=== PATIENT | female | born 1970 | race Hispanic/Latino ===

== ENCOUNTER 2021-05-30 10:45 | Observation (INO) | payer BC ==
--- NOTE | 2021-05-30 12:40 | Emergency Department Report ---
HPI - General Chief Complaint: GI Bleed Time Seen by Provider: 05/30/21 12:16 - [facility] HPI: Room 6 The patient is a 51-year-old female present with a chief complaint of syncope. The patient states she developed diarrhea yesterday. Patient states she then noticed blood in her stool and states she had multiple episodes throughout the night (approximately 4) passing bright red blood per rectum as well as blood clots. The patient states her stool has been malodorous. The patient states she traveled to the airport with her family in preparation for flight to [place] however prior to checking in the patient states she began to feel nauseous and lightheaded and had a syncopal episode waking up on the floor. The patient states she has had 1 bloody bowel movement since she has been in the emergency department and the second time she thought she had to go but did not pass stool/blood. Patient complains of left knee pain after her syncopal episode ED Past Medical Hx - Past Medical History Previous Medical History?: No Hx Diabetes: No (Gestational diabetes) - Surgical History Past Surgical History?: Yes Hx Cholecystectomy: Yes Additional Surgical History: Left knee surgery, jaw surgery - Family History Family history: no significant - Social History Smoking Status: Never Smoker Substance Use Type: None (Denies illicit drug use), Alcohol (Occasional) ED Review of Systems ROS: Stated complaint: SYNCOPE EPISODE POSSIBLE GI BLEED Other details as noted in HPI Constitutional: no symptoms reported Eyes: denies: eye pain ENT: denies: throat pain Respiratory: no symptoms reported Cardiovascular: denies: chest pain Endocrine: no symptoms reported Gastrointestinal: diarrhea, hematochezia. denies: abdominal pain Genitourinary: denies: dysuria Musculoskeletal: denies: back pain Skin: other (Abrasion) Neurological: denies: headache Physical Exam - Physical Exam Vital Signs: Vital Signs 05/30/21 11:37 Temperature 98.8 F Pulse Rate 100 H Respiratory 16 Rate Blood Pressure 114/64 O2 Sat by Pulse 97 Oximetry Physical Exam: GENERAL: The patient is well-developed well-nourished female lying on stretcher not appearing to be in acute distress. [] HEENT: Normocephalic. Atraumatic. Strabismus present. Patient has moist muco us membranes. NECK: Supple. Trachea midline CHEST/LUNGS: Clear to auscultation. There is no respiratory distress noted. HEART/CARDIOVASCULAR: Regular. There is no tachycardia. There is no gallop rub or murmur. ABDOMEN: Abdomen is soft, nontender. Patient has normal bowel sounds. There is no abdominal distention. SKIN: There is no rash. There is an abrasion to the left knee NEURO: The patient is awake, alert, and oriented. The patient is cooperative. The patient has no focal neurologic deficits. The patient has normal speech. GCS 15 MUSCULOSKELETAL: There is soreness about the left knee. RECTAL: Guaiac positive, maroon stool ED Course Vital Signs 05/30/21 11:37 Temperature 98.8 F Pulse Rate 100 H Respiratory 16 Rate Blood Pressure 114/64 O2 Sat by Pulse 97 Oximetry - Consultations Consultation #1: 05/30/21 15:58 GI paged 05/30/21 16:[address] Spangler. States will place order for GoLYTELY bowel prep in preparation for colonoscopy tomorrow ED Medical Decision Making - Lab Data Result diagrams: 05/30/21 12:57 05/30/21 15:02 - Differential Diagnosis Orthostatic hypotension, hypovolemia, diverticulosis, DKA, new onset diabet Critical care attestation.: If time is entered above; I have spent that time in minutes in the direct care of this critically ill patient, excluding procedure time. ED Disposition Clinical Impression: GI bleed, DKA (diabetic ketoacidosis) Disposition: ADMITTED INPATIENT Is pt being admited?: Yes Does the pt Need Aspirin: No Condition: Fair Instructions: Diabetic Ketoacidosis (ED) Referrals: PRIMARY CARE, [Primary Care Provider] - 3-5 Days Forms: Accompanied Note Time of Disposition: 16:44
[2021-05-30 13:25] LABS: Basophils % (Auto) 0.3 % (0.0-1.8); Eosinophils % (Auto) 0.1 % (0.0-4.3); Hematocrit 37.8 % (30.3-42.9); Hemoglobin 12.5 gm/dl (10.1-14.3); Lymphocytes # (Auto) 1.1 K/mm3 (1.2-5.4); Mean Corpuscular HGB Conc 33 % (30-34); Mean Corpuscular Volume 86 fl (79-97); Monocytes # (Auto) 0.3 K/mm3 (0.0-0.8); Monocytes % (Auto) 3.1 % (0.0-7.3); Platelet Count 312 K/mm3 (140-440); Red Blood Count 4.38 M/mm3 (3.65-5.03); Red Cell Distribution Width 12.6 % (13.2-15.2)
[2021-05-30] MEDS ORDERED: SODIUM CHLORIDE 0.9% 1000 ML 1,000 ML IV ONE ×2 (13:31)
[2021-05-30 13:35] LABS: INR 0.92 (0.87-1.13)
[2021-05-30 14:09] LABS: Alanine Aminotransferase 16 units/L (7-56); Albumin 4.3 g/dL (3.9-5); Blood Urea Nitrogen 12 mg/dL (7-17); Calcium 9.7 mg/dL (8.4-10.2); Hemolysis Index 4
[2021-05-30] MEDS ORDERED: traMADol 50 MG TAB PO ONE (14:10)
[2021-05-30 14:19] LABS: BUN/Creatinine Ratio 24
[2021-05-30] MEDS ORDERED: INSULIN REGULAR, HUMAN 100 UNITS in SODIUM CHLORIDE 0.9% 99 ML IV SCH (15:00)
--- NOTE | 2021-05-30 15:20 | Cat Scan Report ---
CT angio abdomen pelvis INDICATION / CLINICAL INFORMATION: GI bleed, syncope 100 ML OMNI 350. TECHNIQUE: CTA of the chest, abdomen and pelvis. MIPS were performed. All CT scans at this location are performe d using CT dose reduction for ALARA by means of automated exposure control. COMPARISON: None available. FINDINGS: VASCULATURE: Aorta is normal in caliber. No dissection. No aneurysm. The celiac, superior and inferior mesenteric arteries, bilateral renal are patent. CHEST: Lungs: Lungs are clear No pleural effusion. No pneumothorax. Heart: No significant abnormality. Mediastinum: No significant abnormality. ADDITIONAL FINDINGS: None. ABDOMEN and PELVIS: Liver: No significant abnormality. Biliary: Gallbladder is surgically absent. Spleen: No significant abnormality. Pancreas: No significant abnormality. Adrenals: 1.8 cm left adrenal lesion with internal Hounsfield units of approximately 60 on this postc ontrast examination. Kidneys: No significant abnormality. Lymphatics: No lymphadenopathy. Bowel/Peritoneum: There are colonic diverticula. No colonic wall thickening or pericolic stranding. N o extravasation of contrast into the bowel.. Pelvis: No significant abnormality. Osseous Structures: No aggressive osseous lesion. Additional Findings: None IMPRESSION: 1. Extravasation of contrast in the bowel to suggest active GI hemorrhage. No acute abnormality of th e chest, abdomen or pelvis. Signer Name: Mukul Gunter MD Signed: 05/30/2021 3:10 PM Workstation Name: [email or web address]
[2021-05-30 15:37] LABS: Blood Urea Nitrogen 12 mg/dL (7-17); Calcium 8.6 mg/dL (8.4-10.2); Hemolysis Index 16
[2021-05-30 15:43] LABS: BUN/Creatinine Ratio 24
[2021-05-30 15:52] LABS: Bilirubin,Urine NEG (Negative); Blood,Urine LG (Negative); Color,Urine Straw (Yellow); Mucus,Urine FEW /HPF; Urobilinogen,Urine < 2.0 mg/dL (<2.0)
[2021-05-30] MEDS ORDERED: ONDANSETRON 4 MG/2 ML INJ IV PRN (16:09)
[2021-05-30] MEDS ORDERED: ALBUTEROL 2.5 MG/3 ML NEBU IH PRN (16:09)
[2021-05-30] MEDS ORDERED: HYDROmorphone 1 MG/1 ML INJ IV PRN (16:09)
[2021-05-30] MEDS ORDERED: oxyCODONE /ACETAMINOPHEN 5-325MG TAB PO PRN (16:09)
--- NOTE | 2021-05-30 16:09 | History and Physical Report ---
History of Present Illness Chief complaint: I passed out, and I have blood in my stool History of present illness: 50 YO Female with Obesity presents ED for evaluation. Patient reports "I have blood in my stool and I passed out". Patient states that she has experienced multiple episodes of dark red blood per rectum over the past 1 day. Patient also report multiple episodes of loose stool. Patient also acknowledges weakness and lightheadedness which resulted in loss of consciousness. EMS was notified and upon arrival the patient was found to be in distress and subsequent transported to [facility] for further care and evaluation of the aforementioned symptoms. The patient was seen and evaluated in the emergency department all lab and imaging studies reviewed. Patient found to have Hemoccult positive stool as well as clinical findings consistent with GI bleed complicated by syncope. Patient also found to have uncontrolled diabetes mellitus. Patient admitted to medical floor and initiated on GI bleed protocol. Patient denies fever, chills, chest pain, palpitation, adductive cough, skin rash, recent cont act, known exposure to COVID-19, ingestion of food/water from new or different sources. No prior admission for review. No medication listed at time of admission for reconciliation. Advanced care planning conducted in ED. GI team consulted in ED. Past History Past Medical History: other (See HPI) Past Surgical History: cholecystectomy, Other (Left knee surgery, general surgery) Social history: , lives with family Family history: hypertension Medications and Allergies Allergies Allergy/AdvReac Type Severity Reaction Status Date / Time No Known Allergies Allergy Unverified 05/30/21 11:41 Active Meds: Active Medications Insulin Human Regular 100 (units/ Sodium Chloride) 100 mls @ 6 mls/hr IV TITR ZAHRA; Protocol Review of Systems Constitutional: no weight loss, no weight gain, no fever, no chills Ears, nose, mouth and throat: no ear pain, no ear discharge, no decreased hearing, no nasal congestion Breasts: no change in shape, no swelling, no mass Cardiovascular: no chest pain, no palpitations, no edema Respiratory: no cough, no excessive sputum, no hemoptysis, no shortness of breath Gastrointestinal: diarrhea, BRBPR, no abdominal pain, no nausea, no hematemesis, no heartburn Genitourinary Female: no pelvic pain, no flank pain, no dysuria, no urinary frequency, no urgency Rectal: no pain, no incontinence, no bleeding Musculoskeletal: no neck stiffness, no neck pain, no arm numbness/tingling, no low back pain, no leg numbness/tingling Integumentary: no rash, no pruritis, no sores, no jaundice, no boils Neurological: no head injury, no paralysis, no parathesias, no numbness, no seizures Psychiatric: no anxiety, no change in sleep habits, no hypersomnia, no change in appetite, no suicidal ideation Endocrine: no cold intolerance, no polyphagia, no polydipsia, no polyuria, no nocturia Hematologic/Lymphatic: no easy bruising, no easy bleeding Allergic/Immunologic: no urticaria, no allergic rhinitis Exam - Constitutional Vitals: Temp Pulse Resp BP Pulse Ox 98.8 F 100 H 16 114/64 100 05/30/21 11:37 05/30/21 11:37 05/30/21 11:37 05/30/21 11:37 05/30/21 13:33 General appearance: Present: mild distress, obese - EENT Eyes: Present: PERRL ENT: hearing intact, clear oral mucosa - Neck Neck: Present: supple, normal ROM - Respiratory Respiratory effort: normal Respiratory: bilateral: CTA - Cardiovascular Heart Sounds: Present: S1 & S2. Absent: rub, click - Extremities Extremities: pulses symmetrical, No edema Peripheral Pulses: within normal limits - Abdominal General gastrointestinal: Present: soft, non-tender, non-distended, normal bowel sounds Female genitourinary: Present: normal - Integumentary Integumentary: Present: clear, warm, dry - Musculoskeletal Musculoskeletal: gait normal, strength equal bilaterally - Psychiatric Psychiatric: appropriate mood/affect, intact judgment & insight - Neurologic Neurologic: CNII-XII intact, moves all extremities HEART Score - HEART Score Troponin: Troponin T < 0.010 ng/mL (0.00-0.029) 05/30/21 12:57 Results - Labs CBC & Chem 7: 05/30/21 12:57 05/30/21 18:35 Labs: Abnormal lab results 05/30/21 05/30/21 05/30/21 Range/Units 12:57 12:57 12:57 RDW 12.6 L (13.2-15.2) % Lymph % (Auto) 12.0 L (13.4-35.0) % Lymph # (Auto) 1.1 L (1.2-5.4) K/mm3 Seg Neutrophils % 84.5 H (40.0-70.0) % APTT 24.0 L (24.2-36.6) Sec. VBG pH (7.320-7.420) Sodium (137-145) mmol/L Chloride (98-107) mmol/L Carbon Dioxide 21 L (22-30) mmol/L Creatinine 0.5 L (0.6-1.2) mg/dL Glucose 329 H (65-100) mg/dL POC Glucose (70-105) mg/dL 05/30/21 05/30/21 05/30/21 Range/Units 12:57 15:02 15:20 RDW (13.2-15.2) % Lymph % (Auto) (13.4-35.0) % Lymph # (Auto) (1.2-5.4) K/mm3 Seg Neutrophils % (40.0-70.0) % APTT (24.2-36.6) Sec. VBG pH 7.312 L (7.320-7.420) Sodium 131 L D (137-145) mmol/L Chloride 95.1 L (98-107) mmol/L Carbon Dioxide 19 L (22-30) mmol/L Creatinine 0.5 L (0.6-1.2) mg/dL Glucose 281 H (65-100) mg/dL POC Glucose 262 H (70-105) mg/dL Assessment and Plan - Patient Problems (1) GI bleed Current Visit: Yes Status: Acute Plan to address problem: GI bleed protocol: IV PPI therapy, GI team consulted, endoscopy in a.m. as per GI team. No transfusion indicated at this time. Hemoglobin currently stable. (2) Obesity hypoventilation syndrome Current Visit: Yes Status: Acute Plan to address problem: Balanced diet, increase physical activity at discharge. (3) Uncontrolled diabetes mellitus Current Visit: Yes Status: Acute Qualifiers: Glycemic state: with hyperglycemia Plan to address problem: Insulin protocol, Accu-Chek, hypoglycemia protocol (4) DVT prophylaxis Current Visit: Yes Status: Acute Plan to address problem: SCD to bilateral lower extremities while in bed, hold anticoagulation now due to active GI bleed. Patient is ambulatory (5) Advance care planning Current Visit: Yes Status: Acute Plan to address problem: Disease education conducted, care plan discussed, diagnoses discussed, prognosis discussed, patient is full code, patient acknowledges understanding and agreement with care plan, +30 minutes
[2021-05-30] MEDS ORDERED: POLYETHYLENE GLYCOL/ELECT SOLN 4000 ML PO STA (16:38)
[2021-05-30 17:02] LABS: Blood Urea Nitrogen 12 mg/dL (7-17); Calcium 7.6 mg/dL (8.4-10.2); Hemolysis Index 50
[2021-05-30 17:12] LABS: BUN/Creatinine Ratio 30
--- NOTE | 2021-05-30 17:54 | Electrocardiograph Report ---
[facility] Test Date: 2021-05-30 Test Time: 12:54:21 Pat Name: AMIRAH TOVAR Department: Room: [facility] Gender: F Information Systems Operator: BAL : 1970 Requested By: JAMES SANCHES Order Number: [id number] Reading MD: Arjun Hernandez Measurements Intervals [place] Rate: 94 P: 44 [place]: 125 QRS: -7 QRSD: 76 T: 118 QT: 333 QTc: 418 Interpretive Statements Sinus rhythm Ventricular premature complex Nonspecific T abnormalities, lateral leads No previous ECG available for comparison Electronically Signed On 05-30-2021 17:54:04 EST by Arjun Hernandez
[2021-05-30 19:05] LABS: Blood Urea Nitrogen 11 mg/dL (7-17); Calcium 7.8 mg/dL (8.4-10.2); Hemolysis Index 2
[2021-05-30 19:12] LABS: BUN/Creatinine Ratio 28
[2021-05-30] MEDS ORDERED: DEXTROSE 50% IN WATER (25GM) 50 ML SYRINGE IV PRN (20:43)
[2021-05-30 21:43] LABS: Blood Urea Nitrogen 11 mg/dL (7-17); Calcium 8.1 mg/dL (8.4-10.2); Hemolysis Index 16
[2021-05-30 21:50] LABS: BUN/Creatinine Ratio 28
[2021-05-30] MEDS: ACETAMINOPHEN 325 MG TAB PO PRN (22:56)
[2021-05-31 01:01] LABS: Blood Urea Nitrogen 11 mg/dL (7-17); Calcium 8.4 mg/dL (8.4-10.2); Hemolysis Index 16
[2021-05-31 01:37] LABS: BUN/Creatinine Ratio 22
[2021-05-31] MEDS: INSULIN LISPRO 100 UNIT/ML SUB-Q SCH ×4 (02:19→17:47)
[2021-05-31 07:50] LABS: Blood Urea Nitrogen 8 mg/dL (7-17); Calcium 8.3 mg/dL (8.4-10.2); Hemolysis Index 3
[2021-05-31 08:26] LABS: BUN/Creatinine Ratio 20
[2021-05-31] MEDS ORDERED: SODIUM CHLORIDE 0.9% 1000 ML 1,000 ML ONE (10:09)
[2021-05-31] MEDS ORDERED: EPINEPHrine 1 MG/10 ML SYRINGE ONE (10:12)
--- NOTE | 2021-05-31 10:40 | Anesthesia Consultation ---
Anesthesia Consult and Med Hx Date of service: 05/31/21 - Airway Anesthetic Teeth Evaluation: Good ROM Head & Neck: Adequate Mental/Hyoid Distance: Adequate Mallampati Class: Class II Intubation Access Assessment: Good - Pulmonary Exam CTA: Yes - Cardiac Exam Cardiac Exam: RRR - Pre-Operative Health Status ASA Pre-Surgery Classification: ASA2 Proposed Anesthetic Plan: MAC - Pulmonary Hx Asthma: No COPD: No Hx Pneumonia: No - Endocrine Hx End Stage Renal Disease: No Hx Non-Insulin Dependent Diabetes: Yes (Eleveted BG in the 250"s-500"s recently)
--- NOTE | 2021-05-31 10:40 | Anesthesia Day of Surgery ---
Anesthesia Day of Surgery - Day of Surgery Patient Examined: Yes Patient H&P Reviewed: Yes Patient is NPO: Yes
--- NOTE | 2021-05-31 10:51 | Gastroenterology Consultation ---
History of Present Illness - Reason for Consult Consult date: 05/31/21 gi bleed/hematochezia Requesting physician: JAMES SANCHES - History of Present Illness The patient is a 50 yo wf who presents with hematochezia. pt had multiple episodes of brbpr starting 2 nights ago. she was at the airport [place] and had syncopal episode after which she presented to ER. Denies abd pain. had bloody bm's after arrival which cleared during golytely prep. No prior episodes of bleeding. Not on anticoagulation. adopted so unknown family h/o of gi issues. denies prior colonoscopy. Past History Past Medical History: other (See HPI) Past Surgical History: cholecystectomy, Other (Left knee surgery, general surgery) Social history: , lives with family Family history: hypertension Medications and Allergies Allergies Allergy/AdvReac Type Severity Reaction Status Date / Time No Known Allergies Allergy Unverified 05/30/21 11:41 Active Meds: Active Medications Acetaminophen (Acetaminophen 325 Mg Tab) 650 mg PO Q4H PRN PRN Reason: Pain MILD(1-3)/Fever >100.5/MELO Last Admin: 05/30/21 22:56 Dose: 650 mg Documented by: Albuterol (Albuterol 2.5 Mg/3 Ml Nebu) 2.5 mg IH Q4HRT PRN PRN Reason: Shortness Of Breath Dextrose (Dextrose 50% In Water (25gm) 50 Ml Syringe) 50 ml IV Q30MIN PRN; Protocol PRN Reason: Hypoglycemia Hydromorphone HCl (Hydromorphone 1 Mg/1 Ml Inj) 0.5 mg IV Q23H PRN PRN Reason: Pain , Severe (7-10) Insulin Human Lispro (Insulin Lispro 100 Unit/Ml) 0 unit SUB-Q Q6HR ZAHRA; Protocol Last Admin: 05/31/21 06:21 Dose: Not Given Documented by: Ondansetron HCl (Ondansetron 4 Mg/2 Ml Inj) 4 mg IV Q8H PRN PRN Reason: Nausea And Vomiting Oxycodone/Acetaminophen (Oxycodone /Acetaminophen 5-325mg Tab) 1 tab PO Q16H PRN PRN Reason: Pain, Moderate (4-6) Sodium Chloride (Sodium Chloride 0.9% 10 Ml Flush Syringe) 10 ml IV BID AZHRA Last Admin: 05/31/21 09:05 Dose: 10 ml Documented by: Sodium Chloride (Sodium Chloride 0.9% 10 Ml Flush Syringe) 10 ml IV PRN PRN PRN Reason: LINE FLUSH Reviewed/updated patient's home and current medications Review of Systems - Review of Systems All systems: negative (per HPI) Exam - Constitutional Vital Signs: Temp Pulse Resp BP Pulse Ox 98.3 F 88 18 99/51 97 05/31/21 04:48 05/31/21 04:48 05/31/21 04:48 05/31/21 04:48 05/31/21 04:48 General appearance: no acute distress - EENT Eyes: PERRL, EOM intact - Respiratory Respiratory effort: normal Respiratory: bilateral: CTA - Cardiovascular Rhythm: regular Heart Sounds: Present: S1 & S2 - Gastrointestinal General gastrointestinal: Present: soft, non-tender, non-distended - Integumentary Integumentary: Present: clear, warm - Neurologic Neurological: alert and oriented x3 - Psychiatric Psychiatric: appropriate mood/affect - Labs CBC & Chem 7: 05/30/21 12:57 05/31/21 06:31 Lab Results: Laboratory Results - last 24 hr 05/30/21 05/30/21 05/30/21 12:57 12:57 12:57 WBC 8.8 RBC 4.38 Hgb 12.5 Hct 37.8 MCV 86 MCH 29 MCHC 33 RDW 12.6 L Plt Count 312 Lymph % (Auto) 12.0 L [place] % (Auto) 3.1 Eos % (Auto) 0.1 Baso % (Auto) 0.3 Lymph # (Auto) 1.1 L [place] # (Auto) 0.3 Eos # (Auto) 0.0 Baso # (Auto) 0.0 Seg Neutrophils % 84.5 H Seg Neutrophils # 7.4 PT 13.4 INR 0.92 APTT 24.0 L VBG pH Sodium 138 Potassium 4.7 Chloride 100.1 Carbon Dioxide 21 L Anion Gap 22 BUN 12 Creatinine 0.5 L Estimated GFR > 60 BUN/Creatinine Ratio 24 Glucose 329 H POC Glucose Calcium 9.7 Phosphorus Magnesium Total Bilirubin 0.60 AST 14 ALT 16 Alkaline Phosphatase 129 Troponin T Total Protein 7.3 Albumin 4.3 Albumin/Globulin Ratio 1.4 Lipase 30 Urine Color Urine Turbidity Urine pH Ur Specific [place] Urine Protein Urine Glucose (UA) Urine Ketones Urine Blood Urine Nitrite Urine Bilirubin Urine Urobilinogen Ur Leukocyte Esterase Urine WBC (Auto) Urine RBC (Auto) U Epithel Cells (Auto) Urine Mucus Blood Type Antibody Screen 05/30/21 05/30/21 05/30/21 12:57 12:57 12:57 WBC RBC Hgb Hct MCV MCH MCHC RDW Plt Count Lymph % (Auto) [place] % (Auto) Eos % (Auto) Baso % (Auto) Lymph # (Auto) [place] # (Auto) Eos # (Auto) Baso # (Auto) Seg Neutrophils % Seg Neutrophils # PT INR APTT VBG pH 7.312 L Sodium Potassium Chloride Carbon Dioxide Anion Gap BUN Creatinine Estimated GFR BUN/Creatinine Ratio Glucose POC Glucose Calcium Phosphorus Magnesium Total Bilirubin AST ALT Alkaline Phosphatase Troponin T < 0.010 Total Protein Albumin Albumin/Globulin Ratio Lipase Urine Color Urine Turbidity Urine pH Ur Specific [place] Urine Protein Urine Glucose (UA) Urine Ketones Urine Blood Urine Nitrite Urine Bilirubin Urine Urobilinogen Ur Leukocyte Esterase Urine WBC (Auto) Urine RBC (Auto) U Epithel Cells (Auto) Urine Mucus Blood Type B POSITIVE Antibody Screen Negative 05/30/21 05/30/21 05/30/21 15:02 15:02 15:20 WBC RBC Hgb Hct MCV MCH MCHC RDW Plt Count Lymph % (Auto) [place] % (Auto) Eos % (Auto) Baso % (Auto) Lymph # (Auto) [place] # (Auto) Eos # (Auto) Baso # (Auto) Seg Neutrophils % Seg Neutrophils # PT INR APTT VBG pH Sodium 131 L D Potassium 3.9 Chloride 95.1 L Carbon Dioxide 19 L Anion Gap 21 BUN 12 Creatinine 0.5 L Estimated GFR > 60 BUN/Creatinine Ratio 24 Glucose 281 H POC Glucose 262 H Calcium 8.6 Phosphorus 4.10 Magnesium 1.70 Total Bilirubin AST ALT Alkaline Phosphatase Troponin T Total Protein Albumin Albumin/Globulin Ratio Lipase Urine Color Urine Turbidity Urine pH Ur Specific [place] Urine Protein Urine Glucose (UA) Urine Ketones Urine Blood Urine Nitrite Urine Bilirubin Urine Urobilinogen Ur Leukocyte Esterase Urine WBC (Auto) Urine RBC (Auto) U Epithel Cells (Auto) Urine Mucus Blood Type Antibody Screen 05/30/21 05/30/21 05/30/21 16:36 18:35 20:50 WBC RBC Hgb Hct MCV MCH MCHC RDW Plt Count Lymph % (Auto) [place] % (Auto) Eos % (Auto) Baso % (Auto) Lymph # (Auto) [place] # (Auto) Eos # (Auto) Baso # (Auto) Seg Neutrophils % Seg Neutrophils # PT INR APTT VBG pH Sodium 132 L 134 L 134 L Potassium 4.2 4.1 3.9 Chloride 99.6 100.6 100.1 Carbon Dioxide 19 L 21 L 20 L Anion Gap 18 17 18 BUN 12 11 11 Creatinine 0.4 L 0.4 L 0.4 L Estimated GFR > 60 > 60 > 60 BUN/Creatinine Ratio 30 28 28 Glucose 240 H 231 H 234 H POC Glucose Calcium 7.6 L 7.8 L 8.1 L Phosphorus Magnesium Total Bilirubin AST ALT Alkaline Phosphatase Troponin T Total Protein Albumin Albumin/Globulin Ratio Lipase Urine Color Urine Turbidity Urine pH Ur Specific [place] Urine Protein Urine Glucose (UA) Urine Ketones Urine Blood Urine Nitrite Urine Bilirubin Urine Urobilinogen Ur Leukocyte Esterase Urine WBC (Auto) Urine RBC (Auto) U Epithel Cells (Auto) Urine Mucus Blood Type Antibody Screen 05/30/21 05/30/21 05/30/21 23:30 23:35 Unknown WBC RBC Hgb Hct MCV MCH MCHC RDW Plt Count Lymph % (Auto) [place] % (Auto) Eos % (Auto) Baso % (Auto) Lymph # (Auto) [place] # (Auto) Eos # (Auto) Baso # (Auto) Seg Neutrophils % Seg Neutrophils # PT INR APTT VBG pH Sodium 134 L Potassium 3.8 Chloride 99.5 Carbon Dioxide 22 Anion Gap 16 BUN 11 Creatinine 0.5 L Estimated GFR > 60 BUN/Creatinine Ratio 22 Glucose 289 H POC Glucose 284 H Calcium 8.4 Phosphorus Magnesium Total Bilirubin AST ALT Alkaline Phosphatase Troponin T Total Protein Albumin Albumin/Globulin Ratio Lipase Urine Color Straw Urine Turbidity Slightly-cloudy Urine pH 5.0 Ur Specific [place] 1.018 Urine Protein 30 mg/dl Urine Glucose (UA) >=500 Urine Ketones 20 Urine Blood Lg Urine Nitrite Neg Urine Bilirubin Neg Urine Urobilinogen < 2.0 Ur Leukocyte Esterase Neg Urine WBC (Auto) 2.0 Urine RBC (Auto) 1.0 U Epithel Cells (Auto) 4.0 Urine Mucus Few Blood Type Antibody Screen 05/31/21 05/31/21 05/31/21 05:46 06:31 10:14 WBC RBC Hgb Hct MCV MCH MCHC RDW Plt Count Lymph % (Auto) [place] % (Auto) Eos % (Auto) Baso % (Auto) Lymph # (Auto) [place] # (Auto) Eos # (Auto) Baso # (Auto) Seg Neutrophils % Seg Neutrophils # PT INR APTT VBG pH Sodium 136 L Potassium 3.6 Chloride 101.8 Carbon Dioxide 23 Anion Gap 15 BUN 8 Creatinine 0.4 L Estimated GFR > 60 BUN/Creatinine Ratio 20 Glucose 250 H POC Glucose 237 H 238 H Calcium 8.3 L Phosphorus Magnesium Total Bilirubin AST ALT Alkaline Phosphatase Troponin T Total Protein Albumin Albumin/Globulin Ratio Lipase Urine Color Urine Turbidity Urine pH Ur Specific [place] Urine Protein Urine Glucose (UA) Urine Ketones Urine Blood Urine Nitrite Urine Bilirubin Urine Urobilinogen Ur Leukocyte Esterase Urine WBC (Auto) Urine RBC (Auto) U Epithel Cells (Auto) Urine Mucus Blood Type Antibody Screen - Imaging CT Scan: report reviewed Assessment and Plan 1. Hematochezia/GI bleed - CTA negative for active bleeding, did show tics. HD stable. will plan for colonoscopy today.
[2021-05-31] MEDS ORDERED: propofoL 200 MG/20 ML VIAL IV ONE (10:54)
[2021-05-31] MEDS ORDERED: MIDAZOLAM 2 MG/2 ML INJ ONE (10:54)
--- NOTE | 2021-05-31 11:09 | Operative Report ---
Operative Report Operative Report: Colonoscopy Procedure Note Date of procedure: 05/31/2021 Endoscopist: Denzel Spangler Pre-op diagnosis/indication: Hematochezia, GI bleed Post-op diagnosis: Diverticulosis, Internal hemorrhoids MEDICATIONS: MAC COMPLICATIONS: No immediate complications ESTIMATED BLOOD LOSS: None DESCRIPTION OF PROCEDURE: After consent was obtained, the patient was placed in the left lateral decubitis position. The olympus colonoscope was inserted into the rectum and advanced to the cecum without difficulty. The patient tolerated the procedure well. The views of the mucosa were fair/adequate for diagnostic purposes (unable to rule out small polyps or flat lesions). The patients vital signs were monitored continuously throughout the procedure. FINDINGS: There were multiple scattered small diverticula throughout the colon. Internal hemorrhoids were visualized on retro-flexion view. No blood was seen during the procedure. IMPRESSION: 1. Diverticulosis - suspected source of bleeding. 2. Internal hemorrhoids. No blood seen during the procedure. RECOMMENDATIONS: -okay to resume diet -high fiber diet daily -follow-up repeat labs, and if stable, can be discharged from GI stand point.
[2021-05-31] MEDS: ACETAMINOPHEN 325 MG TAB PO PRN (12:49)
[2021-05-31 15:08] LABS: BUN/Creatinine Ratio 12; Blood Urea Nitrogen 6 mg/dL (7-17); Calcium 8.7 mg/dL (8.4-10.2); Hemolysis Index 17
--- NOTE | 2021-05-31 15:45 | Progress Note ---
Assessment and Plan Assessment and plan: #Lower GI bleed #Diverticulosis #Internal hemorrhoids -Hemoglobin and hematocrit within normal limits -Colonoscopy today showed diverticulosis and internal hemorrhoids; no active bleed -Bleed likely secondary to diverticulosis #Syncope -Continue telemetry -Orthostatic vital signs -Given patient's description of events most likely vasovagal #Presumed type 2 diabetes -Elevated glucose on POC and BMPs -Patient with history of gestational diabetes with previous -Continue sliding scale -Will likely need Metformin at discharge -Lipid panel, A1c ordered -Counseled on diet, exercise (lifestyle modification) as adjunct treatment for diabetes/metabolic syndrome patient voiced understanding Time: +10 minutes Disposition Plan: Home in a.m. History Interval history: No acute events overnight. Patient returned from colonoscopy. Discussed results with her. Patient tolerated her diet. Complains of mild headache at this time. Hospitalist Physical - Physical exam Narrative exam: GENERAL: Well-developed well-nourished. In no acute distress. HEENT: Normocephalic. Atraumatic. CHEST/LUNGS: CTAB on room air HEART/CARDIOVASCULAR: RRR. No murmur, rubs or gallops appreciated. ABDOMEN: +BS. NT/ND. SKIN: No rashes noted. NEURO: No focal motor deficit. Follows all commands. EXTREMITIES: No cyanosis, clubbing or edema. PSYCH: Cooperative. - Constitutional Vitals: Temp Pulse Resp BP Pulse Ox 97.8 F 86 14 116/59 96 05/31/21 11:08 05/31/21 11:35 05/31/21 11:35 05/31/21 11:35 05/31/21 12:59 General appearance: Present: mild distress, obese HEART Score - HEART Score Troponin: Troponin T < 0.010 ng/mL (0.00-0.029) 05/30/21 12:57 Results - Labs CBC & Chem 7: 05/30/21 12:57 05/31/21 14:40 Labs: Laboratory Last Values WBC 8.8 K/mm3 (4.5-11.0) 05/30/21 12:57 RBC 4.38 M/mm3 (3.65-5.03) 05/30/21 12:57 Hgb 12.5 gm/dl (10.1-14.3) 05/30/21 12:57 Hct 37.8 % (30.3-42.9) 05/30/21 12:57 MCV 86 fl (79-97) 05/30/21 12:57 MCH 29 pg (28-32) 05/30/21 12:57 MCHC 33 % (30-34) 05/30/21 12:57 RDW 12.6 % (13.2-15.2) L 05/30/21 12:57 Plt Count 312 K/mm3 (140-440) 05/30/21 12:57 Lymph % (Auto) 12.0 % (13.4-35.0) L 05/30/21 12:57 [place] % (Auto) 3.1 % (0.0-7.3) 05/30/21 12:57 Eos % (Auto) 0.1 % (0.0-4.3) 05/30/21 12:57 Baso % (Auto) 0.3 % (0.0-1.8) 05/30/21 12:57 Lymph # (Auto) 1.1 K/mm3 (1.2-5.4) L 05/30/21 12:57 [place] # (Auto) 0.3 K/mm3 (0.0-0.8) 05/30/21 12:57 Eos # (Auto) 0.0 K/mm3 (0.0-0.4) 05/30/21 12:57 Baso # (Auto) 0.0 K/mm3 (0.0-0.1) 05/30/21 12:57 Seg Neutrophils % 84.5 % (40.0-70.0) H 05/30/21 12:57 Seg Neutrophils # 7.4 K/mm3 (1.8-7.7) 05/30/21 12:57 PT 13.4 Sec. (12.2-14.9) 05/30/21 12:57 INR 0.92 (0.87-1.13) 05/30/21 12:57 APTT 24.0 Sec. (24.2-36.6) L 05/30/21 12:57 VBG pH 7.312 (7.320-7.420) L 05/30/21 12:57 Sodium 136 mmol/L (137-145) L 05/31/21 14:40 Potassium 3.8 mmol/L (3.6-5.0) 05/31/21 14:40 Chloride 101.1 mmol/L (98-107) 05/31/21 14:40 Carbon Dioxide 24 mmol/L (22-30) 05/31/21 14:40 Anion Gap 15 mmol/L 05/31/21 14:40 BUN 6 mg/dL (7-17) L 05/31/21 14:40 Creatinine 0.5 mg/dL (0.6-1.2) L 05/31/21 14:40 Estimated GFR > 60 ml/min 05/31/21 14:40 BUN/Creatinine Ratio 12 % 05/31/21 14:40 Glucose 324 mg/dL (65-100) H 05/31/21 14:40 POC Glucose 234 mg/dL (70-105) H 05/31/21 12:43 Calcium 8.7 mg/dL (8.4-10.2) 05/31/21 14:40 Phosphorus 4.10 mg/dL (2.5-4.5) 05/30/21 15:02 Magnesium 1.70 mg/dL (1.7-2.3) 05/30/21 15:02 Total Bilirubin 0.60 mg/dL (0.1-1.2) 05/30/21 12:57 AST 14 units/L (5-40) 05/30/21 12:57 ALT 16 units/L (7-56) 05/30/21 12:57 Alkaline Phosphatase 129 units/L (35-129) 05/30/21 12:57 Troponin T < 0.010 ng/mL (0.00-0.029) 05/30/21 12:57 Total Protein 7.3 g/dL (6.3-8.2) 05/30/21 12:57 Albumin 4.3 g/dL (3.9-5) 05/30/21 12:57 Albumin/Globulin Ratio 1.4 % 05/30/21 12:57 Lipase 30 units/L (13-60) 05/30/21 12:57 Urine Color Straw (Yellow) 05/30/21 Unknown Urine Turbidity Slightly-cloudy (Clear) 05/30/21 Unknown Urine pH 5.0 (5.0-7.0) 05/30/21 Unknown Ur Specific [place] 1.018 (1.003-1.030) 05/30/21 Unknown Urine Protein 30 mg/dl mg/dL (Negative) 05/30/21 Unknown Urine Glucose (UA) >=500 mg/dL (Negative) 05/30/21 Unknown Urine Ketones 20 mg/dL (Negative) 05/30/21 Unknown Urine Blood Lg (Negative) 05/30/21 Unknown Urine Nitrite Neg (Negative) 05/30/21 Unknown Urine Bilirubin Neg (Negative) 05/30/21 Unknown Urine Urobilinogen < 2.0 mg/dL (<2.0) 05/30/21 Unknown Ur Leukocyte Esterase Neg (Negative) 05/30/21 Unknown Urine WBC (Auto) 2.0 /HPF (0.0-6.0) 05/30/21 Unknown Urine RBC (Auto) 1.0 /HPF (0.0-6.0) 05/30/21 Unknown U Epithel Cells (Auto) 4.0 /HPF (0-13.0) 05/30/21 Unknown Urine Mucus Few /HPF 05/30/21 Unknown Blood Type B POSITIVE 05/30/21 12:57 Antibody Screen Negative 05/30/21 12:57 Microbiology: Microbiology 05/30/21 15:55 Stool Stool Occult Blood (CYNTHIA) - Final Krishna/IV: Voiding Method Toilet Active Medications - Current Medications Current Medications: Generic Name Dose Route Start Last Admin Trade Name Freq PRN Reason Stop Dose Admin Acetaminophen 650 mg 05/30/21 16:09 05/31/21 12:49 Acetaminophen 325 Mg Tab PO 650 mg Q4H PRN Administration Pain MILD(1-3)/Fever >100.5/MELO Albuterol 2.5 mg 05/30/21 16:09 Albuterol 2.5 Mg/3 Ml Nebu IH Q4HRT PRN Shortness Of Breath Dextrose 50 ml 05/30/21 20:43 Dextrose 50% In Water (25gm) 50 Ml Syringe IV Q30MIN PRN Hypoglycemia Protocol Hydromorphone HCl 0.5 mg 05/30/21 16:09 Hydromorphone 1 Mg/1 Ml Inj IV Q23H PRN Pain , Severe (7-10) Insulin Human Lispro 0 unit 05/31/21 00:00 05/31/21 12:49 Insulin Lispro 100 Unit/Ml SUB-Q 7 unit Q6HR ZAHRA Administration Protocol Ondansetron HCl 4 mg 05/30/21 16:09 Ondansetron 4 Mg/2 Ml Inj IV Q8H PRN Nausea And Vomiting Oxycodone/Acetaminophen 1 tab 05/30/21 16:09 Oxycodone /Acetaminophen 5-325mg Tab PO Q16H PRN Pain, Moderate (4-6) Sodium Chloride 10 ml 05/30/21 22:00 05/31/21 09:05 Sodium Chloride 0.9% 10 Ml Flush Syringe IV 10 ml BID ZAHRA Administration Sodium Chloride 10 ml 05/30/21 16:09 Sodium Chloride 0.9% 10 Ml Flush Syringe IV PRN PRN LINE FLUSH
--- NOTE | 2021-05-31 17:37 | Post Anesthesia Evaluation ---
- Post Anesthesia Evaluation Patient Participated: Yes Airway Patent: Yes Stable Respiratory Function: Yes Nausea/Vomiting: No Temp > 96.8F: Yes Pain Manageable: Yes Adequeate Hydration: Yes Anesthesia Complications: No Block Receding Appropriately: Not Applicable Patient on Ventilator: No
[2021-05-31] MEDS ORDERED: MELATONIN 5 MG TAB PO PRN (21:20)
[2021-06-01] MEDS: INSULIN LISPRO 100 UNIT/ML SUB-Q SCH ×2 (00:30→08:30)
[2021-06-01 06:27] LABS: Hematocrit 26.8 % (30.3-42.9)
[2021-06-01 06:40] LABS: Chol/HDL Ratio 2.55 %
--- NOTE | 2021-06-01 07:20 | Discharge Summary ---
Providers - Providers Date of Admission: 05/30/21 16:09 Date of discharge: 06/01/21 Attending physician: CIEAR WILSON MD 05/30/21 16:09 Consult to Physician [CONS] Urgent Comment: Consulting Provider: JERONIMO CASTELLANO Physician Instructions: Reason For Exam: GI bleed Primary care physician: COLD ROLLER Hospitalization Reason for admission: Syncope and GI bleed Condition: Fair Procedures: Colonoscopy: Diverticulosis and internal hemorrhoids. Hospital course: 50-year-old female with history of gestational diabetes who presented after syncopal episode and hematochezia. Hemoglobin and hematocrit were stable. CT of the abdomen was negative for acute bleed. GI was consulted. Colonoscopy was performed which showed diverticulosis and internal hemorrhoids without active bleed. Orthostatic vital signs are negative. A1c revealed diabetes. Patient was discharged home with Metformin prescription. Disposition: HOME / SELF CARE / HOMELESS Final Discharge Diagnosis (Prints w/discharge instructions): Normocytic anemia. Lower GI bleed. Diverticulosis. Internal hemorrhoids. Syncope. Type 2 diabetes, new onset Time spent for discharge: 30 minutes Core Measure Documentation - Palliative Care Palliative Care/ Comfort Measures: Not Applicable - Core Measures Any of the following diagnoses?: none Exam - Physical Exam Narrative exam: GENERAL: Well-developed well-nourished. In no acute distress. HEENT: Normocephalic. Atraumatic. CHEST/LUNGS: CTAB on room air HEART/CARDIOVASCULAR: RRR. No murmur, rubs or gallops appreciated. ABDOMEN: +BS. NT/ND. SKIN: No rashes noted. NEURO: No focal motor deficit. Follows all commands. EXTREMITIES: No cyanosis, clubbing or edema. PSYCH: Cooperative. - Constitutional Vitals: Temp Pulse Resp BP Pulse Ox 97.8 F 86 14 116/59 98 05/31/21 11:08 05/31/21 11:35 05/31/21 11:35 05/31/21 11:35 06/01/21 00:00 Plan Care Plan Goals: Follow-up primary care doctor at your scheduled appointment next month. Your hemoglobin A1c is 12% it is an indicator of blood sugars over a 3-month period. Please start taking Metformin 1 pill a day with meals. If you experience any GI upset while taking this medication (nausea, vomiting, diarrhea), please let your primary care doctor know. Please check your blood glucose at home, at least once per day alternating between fasting, prior to meals, and after meals. Please record these readings and bring them to your PCP appointment. Assessment: Patient present with syncope and bright red blood per rectum. Her hematochezia resolved. GI was consulted and colonoscopy was performed. Colonoscopy revealed diverticulosis and internal hemorrhoids without bleed. The diverticuli were presumed to be the source of bleed. Once stable patient was discharged home with family. Follow up with: PRIMARY CARE, [Primary Care Provider] - 3-5 Days Forms: Accompanied Note Prescriptions: Lancets/Blood Glucose Strips [Fora [id number] Strp-Lnct] 1 each MC DAILY 30 Days #1 combo..pkg metFORMIN XR [Glucophage XR] 500 mg PO QDAY 30 Days #30 tab Other Discharge Orders: Glucometer (Amb) Location: None Selected Glucometer supplies[Amb] Location: None Selected
[2021-06-01] MEDS: ACETAMINOPHEN 325 MG TAB PO PRN (07:50)
[2021-06-01 08:12] VITALS: BP 119/68
== END 2021-06-01 11:50 | disposition home or self-care (01) ==
LOC: ED 11:11 → 3A 16:09
PROVIDERS: ADMIT Internal Medicine; ATTEND Student in an Organized Health Care Education/Training Program
DX: K92.2 Gastrointestinal hemorrhage, unspecified (principal); E66.2 Morbid (severe) obesity with alveolar hypoventilation; E11.65 Type 2 diabetes mellitus with hyperglycemia; E11.10 Type 2 diabetes mellitus with ketoacidosis without coma; Z68.32 Body mass index [BMI] 32.0-32.9, adult; Z90.49 Acquired absence of other specified parts of digestive tract; Z79.899 Other long term (current) drug therapy; Z98.890 Other specified postprocedural states; Z79.4 Long term (current) use of insulin
CPT/HCPCS: 36415; 45378; 74174; 80048; 80053; 80061; 81001; 82271; 82805; 82962; 83036; 83690; 83735; 84100; 84484; 85014; 85018; 85025; 85610; 85730; 86850; 86900; 86901; 93005; 96360; 96372; 99285; G0378; J2250; J2704; J7030; Q9967; J7120; Q0162; J0171; J1815